=== PATIENT | male | born 1970 | race Caucasian/White ===

== ENCOUNTER 2021-10-08 17:57 | Emergency (ER) | payer MEDICAID ==
[~2021-10-08] VITALS: Ht 172.7 cm; Wt 83.0 kg
[2021-10-08 18:04] VITALS: BP 143/79
== END 2021-10-09 03:06 | disposition left against medical advice (07) ==
LOC: ER 17:57
DX: Z53.21 Procedure and treatment not carried out due to patient leaving prior to being seen by health care provider (principal)